=== PATIENT | female | born 1995 | race Hispanic/Latino ===

== ENCOUNTER 2016-11-06 06:13 | Inpatient (IN) | payer OTHER ==
[~2016-11-06] VITALS: Ht 160 cm; Wt 95.0 kg
[2016-11-06] VITALS (18 sets, daily range): BP systolic 100–139; BP diastolic 51–76
[~2016-11-06 06:13] MED LIST: CIPRO500 MG PO; KEFLEX500 MG PO; TYLENOL ARTHRI650 MG PO
[2016-11-06] MEDS ORDERED: PRENATAL TABLE1 EAC3 PO (08:26)
[2016-11-06 10:43] LABS: EOSINOPHIL (%) 0.9 % (0-5); EOSINOPHIL COUNT 0.1 K/uL (0-0.3); HEMATOCRIT 38.4 % (36.0-46.0); IMMATURE GRANULOCYTE (%) 3.9 % (0.0-0.7); IMMATURE GRANULOCYTE COUNT 0.4 K/uL; INSTRUMENT ABS NEUTROPHIL CT 7.1 K/uL; LYMPHOCYTE COUNT 1.7 K/uL (1.0-2.8); MCH 30.4 PG (29.0-34.0); MCHC 33.9 G/DL (30.0-36.0); MCV 89.9 FL (83-99); MEAN PLAT.VOLUME 11.3 uM^3 (9.5-12.4); MONOCYTE (%) 8.2 % (3-12); MONOCYTE COUNT 0.8 K/uL (0-0.8); NEUTROPHIL (%) 69.9 % (45-76); NEUTROPHIL COUNT 7.1 K/uL (1.8-6.4); PLATELET COUNT 186 K/uL (156-360); RBC DIS.WIDTH-CV 13.3 % (11.8-14.6); RBC DIS.WIDTH-SD 43.3 % (39-53); RED BLOOD COUNT 4.27 M/uL (3.80-5.20); WHITE BLOOD COUNT 10.1 K/uL (4.1-10.2)
[2016-11-07] VITALS (26 sets, daily range): BP systolic 88–138; BP diastolic 35–81
[2016-11-07 16:30] LABS: HEMATOCRIT 34.9 % (36.0-46.0); MCH 31.6 PG (29.0-34.0); MCHC 34.7 G/DL (30.0-36.0); MCV 91.1 FL (83-99); MEAN PLAT.VOLUME 11.4 uM^3 (9.5-12.4); PLATELET COUNT 180 K/uL (156-360); RBC DIS.WIDTH-CV 13.5 % (11.8-14.6); RBC DIS.WIDTH-SD 44.9 % (39-53); RED BLOOD COUNT 3.83 M/uL (3.80-5.20)
[2016-11-08 03:00] VITALS: BP 94/50
[2016-11-08 07:19] LABS: EOSINOPHIL (%) 0.1 % (0-5); HEMATOCRIT 26.8 % (36.0-46.0); IMMATURE GRANULOCYTE (%) 2.4 % (0.0-0.7); IMMATURE GRANULOCYTE COUNT 0.4 K/uL; INSTRUMENT ABS NEUTROPHIL CT 12.3 K/uL; LYMPHOCYTE COUNT 2.2 K/uL (1.0-2.8); MCH 31.2 PG (29.0-34.0); MCHC 34.7 G/DL (30.0-36.0); MCV 89.9 FL (83-99); MEAN PLAT.VOLUME 10.7 uM^3 (9.5-12.4); MONOCYTE (%) 8.9 % (3-12); MONOCYTE COUNT 1.5 K/uL (0-0.8); NEUTROPHIL (%) 75.3 % (45-76); NEUTROPHIL COUNT 12.3 K/uL (1.8-6.4); PLATELET COUNT 153 K/uL (156-360); RBC DIS.WIDTH-CV 13.5 % (11.8-14.6); RBC DIS.WIDTH-SD 44.3 % (39-53); WHITE BLOOD COUNT 16.3 K/uL (4.1-10.2)
[2016-11-08 07:20] LABS: RED BLOOD COUNT 2.98 M/uL (3.80-5.20)
[2016-11-08 08:00] VITALS: BP 100/52
[2016-11-08 12:00] VITALS: BP 103/58
[2016-11-09 08:48] VITALS: BP 100/61
[2016-11-09] MEDS ORDERED: ENDOCET 5-3251 EACH PO (10:34)
[2016-11-09] MEDS ORDERED: IBUPROFEN800 MG PO (10:34)
[2016-11-09 11:54] VITALS: BP 113/59
== END 2016-11-09 15:00 | disposition home or self-care (01) | DRG 765 ==
LOC: LDRP-OP → 2WEST 06:14 → LDRP-OP 12-05 15:28
PROVIDERS: Advanced Practice Midwife; Obstetrics & Gynecology
DX: O61.9 Failed induction of labor, unspecified (principal); O75.89 Other specified complications of labor and delivery; D62 Acute posthemorrhagic anemia; O99.02 Anemia complicating childbirth; Z3A.40 40 weeks gestation of pregnancy; Z37.0 Single live birth; O33.9 Maternal care for disproportion, unspecified; E66.9 Obesity, unspecified; Z68.28 Body mass index [BMI] 28.0-28.9, adult; O99.214 Obesity complicating childbirth; F17.200 Nicotine dependence, unspecified, uncomplicated; O99.334 Smoking (tobacco) complicating childbirth
CPT/HCPCS: 85025; 85027; 86900; 86901; C1755; G0378; J0595; J0690; J1885; J2210; J2274; J2405; J3010; J7120; Q0169; S0020

== ENCOUNTER 2016-12-06 | Emergency (ER) | payer OTHER ==
[~2016-12-06] VITALS: Ht 165.1 cm; Wt 87.5 kg
[~2016-12-06] MED LIST changes: +ENDOCET 5-3251 EACH PO; +IBUPROFEN800 MG PO; +PRENATAL TABLE1 EAC3 PO
[2016-12-06] MEDS ORDERED: ULTRAM50 MG PO (01:55)
[2016-12-06 02:25] VITALS: BP 113/67
== END 2016-12-06 02:26 | disposition home or self-care (01) ==
LOC: EXP → EME → EXP 02:26
DX: S92.901A Unspecified fracture of right foot, initial encounter for closed fracture (principal); X58.XXXA Exposure to other specified factors, initial encounter
CPT/HCPCS: 73630; 99281; 99283

== ENCOUNTER 2017-07-26 20:21 | Emergency (ER) | payer OTHER ==
[~2017-07-26] VITALS: Ht 160 cm; Wt 98.1 kg
[~2017-07-26 20:21] MED LIST changes: +ULTRAM50 MG PO
[2017-07-26 21:32] LABS: APPEARANCE SL.HAZY ((CLEAR)); BILIRUBIN NEGATIVE; BLOOD NEGATIVE; COLOR YELLOW ((YELLOW)); GLUCOSE (STRIP) NEGATIVE; KETONES NEGATIVE; LEUKOCYTES NEGATIVE; NITRITE NEGATIVE; PROTEIN (STRIP) 30; SPECIFIC GRAVITY 1.029 (1.000-1.030); UROBILINOGEN 0.2 MG/DL (0.2-1.0)
[2017-07-26 21:36] LABS: HEMATOCRIT 39.6 % (36.0-46.0); HEMOGLOBIN 13.4 G/DL (11.9-15.5); MCHC 33.8 G/DL (30.0-36.0); MCV 85.7 FL (83-99); PLATELET COUNT 242 K/uL (156-360); RBC DIS.WIDTH-CV 11.9 % (11.8-14.6); RBC DIS.WIDTH-SD 37.5 % (39-53); RED BLOOD COUNT 4.62 M/uL (3.80-5.20); WHITE BLOOD COUNT 7.5 K/uL (4.1-10.2)
[2017-07-26 21:43] LABS: BACTERIA RARE /HPF; EPITHELIAL CELLS 1+ /HPF; MUCUS TRACE /LPF; RED BLOOD CELLS 0-5 /HPF (0-5); UCUL ADDED? NO; WHITE BLOOD CELLS 0-5 /HPF (0-5)
[2017-07-26 21:47] LABS: ALBUMIN 4.4 g/dL (3.2-4.8); CHLORIDE 105 mEq/L (99-109); POTASSIUM 4.1 mEq/L (3.7-5.4); SODIUM 142 mEq/L (136-147)
[2017-07-26 21:50] LABS: GLUCOSE 81 mg/dL (70-99)
[2017-07-26 21:52] LABS: TOTAL BILIRUBIN 0.3 mg/dL (0.0-1.0)
[2017-07-26 21:53] LABS: ALKALINE PHOSPHATASE 66 IU/L (3-129); CREATININE 0.8 mg/dL (0.6-1.3); GFR ESTIMATE (CALCULATED) > 59 mL/min/
[2017-07-26 21:54] LABS: UREA NITROGEN (BUN) 20 mg/dL (9-23)
[2017-07-26 21:55] LABS: AST (GOT) 20 IU/L (2-34)
[2017-07-26 21:56] LABS: ALT (GPT) 14 IU/L (3-49)
[2017-07-26] MEDS ORDERED: MOTRIN800 MG PO (23:11)
[2017-07-26] MEDS ORDERED: FLEXERIL10 MG PO (23:11)
[2017-07-26 23:31] VITALS: BP 120/82
== END 2017-07-26 23:32 | disposition home or self-care (01) ==
LOC: EME 20:21
PROVIDERS: Nurse Practitioner Family
DX: R10.9 Unspecified abdominal pain (principal); M54.5 Low back pain; M62.830 Muscle spasm of back; E16.2 Hypoglycemia, unspecified; Z87.440 Personal history of urinary (tract) infections; Z88.0 Allergy status to penicillin
CPT/HCPCS: 74176; 80053; 81003; 81025; 85027; 99281; 99285; J1885